=== PATIENT | male | born 1995 | race Caucasian/White ===

== ENCOUNTER 2024-10-02 07:09 | Inpatient (IN) | payer MEDICAID, SELFPAY ==
[2024-10-02] VITALS (10 sets, daily range): BP systolic 116–137; BP diastolic 75–91; PULSE 88–151; RESP 14–19; TEMP 36.6–37.2; O2SAT 96–100; BMI 21.7
--- NOTE | 2024-10-02 07:32 | ECG_ITS ---
Test Reason : chest pain Blood Pressure : / mmHG Vent. Rate : 122 BPM Atrial Rate : 122 BPM P-R Int : 142 ms QRS Dur : 094 ms QT Int : 324 ms P-R-T Axes : 050 066 041 degrees QTc Int : 461 ms Sinus tachycardia Otherwise normal ECG No previous ECGs available Referred By: Generic ED Physician Electronically Signed By:TRISTIN MAX MD
--- NOTE | 2024-10-02 07:36 | ED_ITS ---
HPI - General Adult General Chief complaint: ETOH/Substance Use Stated complaint: Alcohol Withdrawals Time Seen by Provider: 10/02/24 07:36 Source: patient and other (patient's fianc?) Mode of arrival: ambulatory Limitations: no limitations History of Present Illness ED Provider: Tami Horton PA-C HPI narrative: 29-year-old male presents with a PMH significant for anxiety, depression, insomnia, alcohol withdrawal with history of delirium tremens in 2021 presents to the ED today for alcohol withdrawal. He has been to detox before after being treated for alcohol withdrawal. Patient reportedly has been on a 1-week ramirez and has drank approximately 10 sleeves of nips this week. Every day this week he has consumed 15 nips of vodka per day. Patient states that he continues to consume nips to prevent feeling the effects of alcohol withdrawal. Yesterday he consumed 10 nips in an attempt to cut back on the amount he was drinking. His last drink was around 0200, but it was difficult for him to recall. Patient experienced N/V this morning and was extremely diaphoretic. Patient endorses tremors at rest, intermittent numbness and tingling in his fingers and toes, and severe anxiety. Denies visual or auditory hallucinations at this time, MADDEN, agitation or altered orientation. Endorses marijuana and cigarette use. Patient reports feeling a lot of shame about his current situation. Relieving factors: none Exacerbating factors: none Related Data Home Medications ?Medication ?Instructions ?Recorded ?Confirmed ibuprofen 200 mg tablet 200 mg PO DAILY PRN Pain 10/02/24 10/02/24 melatonin 5 mg tablet 5 mg PO BEDTIME PRN Sleep 10/02/24 10/02/24 Allergies Allergy/AdvReac Type Severity Reaction Status Date / Time No Known Allergies Allergy Verified 10/02/24 07:29 Review of Systems 2 Constitutional: Constitutional: Denies chills, Reports excessive sweating, Denies fever(s) and Denies night sweats Eyes: Eyes: Reports no additional eye complaints, Denies blurry vision, Denies change in vision, Denies diplopia, Denies eye discharge, Denies loss of vision and Denies eye pain ENT: Denies dizziness Cardiovascular: Cardiovascular: Reports no additional cardiovascular complaints, Denies chest pain, Denies lightheadedness, Denies Loss of Consciousness and Denies dyspnea Respiratory: Respiratory: Reports no additional respiratory complaints and Denies dyspnea Gastrointestinal: Gastrointestinal: Reports no additional gastrointestinal complaints, Denies abdominal pain, Denies melena, Denies hematochezia, Denies change in bowel habits, Denies change in stool character, Reports nausea and Reports vomiting Genitourinary: Genitourinary: Reports no additional male genitourinary complaints, Denies hematuria, Denies oliguria, Denies difficulty urinating, Denies dysuria, Denies urinary frequency, Denies urinary hesitancy, Denies urinary incontinence and Denies urinary urgency Musculoskeletal: Musculoskeletal: Reports no additional musculoskeletal complaints, Reports numbness and Reports tingling Neurologic: Denies dizziness, Denies loss of vision, Reports numbness, Denies Other visual disturbances, Reports tingling and Reports tremor(s) Psychiatric: Psychiatric: Reports no additional psychiatric complaints and Reports anxiety Endocrine: Endocrine: Reports no additional endocrine complaints and Reports excessive sweating Hematologic/Lymphatic: Hematologic/Lymphatic: Reports no additional hematologic/lymphatic complaints Allergic/Immunologic: Allergic/Immunologic: Reports no additional allergic/immunologic complaints PMFSH Past Medical History Attestation statement: The following information was validated with the patient. (all information validated with the patient's fianc?) Source: old records reviewed, obtained from family (patient's fianc? provided additional history and confirmed the history provided by the patient) and nursing notes reviewed Medical History Insomnia Depression Anxiety ETOH abuse Social History Social History Alcohol intake: current Patient Tobacco Use Status: Current everyday Tobacco user Smoked in Last 30 Days: No Use of substances other than those prescribed or required for medical reasons: No Advance Directives: No Advance Directives Information Provided: Yes Do you have a plan to hurt others: No Plan Nutrition Risks: No Nutritional Risk Physical Exam ED Vital Signs: Vital Signs - 24 hr 10/02/24 07:25 10/02/24 07:50 10/02/24 10:18 Temperature 97.9 F Pulse Rate 151 H 118 H 135 H Respiratory Rate 18 18 14 Blood Pressure 131/80 127/91 H 122/76 Pulse Oximetry 100 99 98 Oxygen Delivery Method Room Air Room Air Room Air 10/02/24 10:43 Temperature Pulse Rate 111 H Respiratory Rate 16 Blood Pressure 116/78 Pulse Oximetry 98 Oxygen Delivery Method Room Air BMI result Body Mass Index 21.7 Const General: cooperative, no acute distress, alert and awake; No diaphoretic Nutritional Appearance: well nourished Orientation/consciousness: patient oriented x3 Limitations: no limitations HENMT Head: Yes normal to inspection and Yes atraumatic Ears: hearing grossly normal bilaterally and external ears normal General nose exam: Normal external nose present, no nasal discharge noted and no epistaxis Face and sinus: Yes normal facial exam, No abrasion and No laceration Mouth: Normal oral and palatal mucosa present, no drooling and no muffled voice Eyes General: appearance normal, both eyes and all related structures Periorbital: periorbital findings normal Eyelids: Yes eyelids normal Conjunctivae: conjunctivae normal Pupils: Equal, round and reactive pupils present EOM: EOMs intact bilaterally Neck Neck: Yes normal visual inspection, Yes full ROM and Yes no lymphadenopathy Chest Chest palpation & inspection: normal inspection of the chest Resp Effort & Inspection: normal respiratory effort and able to speak in complete sentences GI Inspection: Yes normal to inspection Palpation (GI): Soft to palpation, not firm, nontender and no guarding Neuro General: patient oriented x3 and moves all extremities Cranial nerves: Yes Equal, round and reactive pupils present Cognition (Neuro): normal cognition Motor exam (neuro): Tremors during motor activity present (all extremities) Extrem General: Yes normal to inspection, Yes full ROM and Yes capillary refill normal Psych Appearance: grossly normal Mental Status: mental status grossly normal Affect: normal affect Attitude: cooperative Thought process: Normal thought process present Thought content: Normal thought content present Insight: Good insight present (Psych) Medications Administered Generic Name Dose Route Start Last Admin Trade Name Freq PRN Reason Stop Dose Admin Enoxaparin Sodium 40 mg 10/02/24 11:15 10/02/24 11:34 Enoxaparin Sodium 40 Mg/0.4 Ml Syringe SUBCUT 40 mg Q24H KAY Administration Famotidine 20 mg 10/02/24 11:30 10/02/24 11:35 Famotidine/Pf 20 Mg/2 Ml Vial IVPUSH 20 mg BID KAY Administration Folic Acid 1 mg 10/02/24 11:30 10/02/24 11:36 Folic Acid 1 Mg Tablet PO 10/05/24 11:29 1 mg DAILY KAY Administration Multivitamins/Vitamin C 1 tab 10/02/24 11:30 10/02/24 11:36 Multivitamin Tablet PO 10/05/24 11:29 1 tab DAILY KAY Administration Thiamine HCl 100 mg 10/02/24 11:30 10/02/24 11:36 Thiamine Hcl 100 Mg Tablet PO 10/05/24 11:29 100 mg DAILY KAY Administration Discontinued Medications Generic Name Dose Route Start Last Admin Trade Name Jennifer PRN Reason Stop Dose Admin Sodium Chloride 1,000 mls @ 999 mls/hr 10/02/24 10:00 10/02/24 11:41 Ns IV 10/02/24 11:00 Infused .Q1H1M KYA Infusion Lorazepam 2 mg 10/02/24 07:37 10/02/24 07:48 Lorazepam 2 Mg/Ml Vial IVPUSH 10/02/24 07:38 2 mg ONCE ONE Administration Nicotine 21 mg 10/02/24 10:04 10/02/24 10:37 Nicotine 21 Mg Patch.Td24 TRANSDERMA 10/02/24 10:05 21 mg ONCE ONE Administration Ondansetron HCl 4 mg 10/02/24 07:37 10/02/24 07:48 Ondansetron Hcl 4 Mg/2 Ml Vial IVPUSH 10/02/24 07:38 4 mg ONCE ONE Administration Phenobarbital Sodium 290 mg 10/02/24 10:00 10/02/24 10:37 Phenobarbital Sodium 130 Mg/Ml Im Once IM 10/02/24 10:01 290 mg ONCE ONE Administration Protocol Potassium Chloride 20 meq 10/02/24 11:08 10/02/24 11:36 Potassium Chloride Er 20 Meq Tab.Er.Prt PO 10/02/24 11:09 20 meq ONCE ONE Administration Medical Decision Making Medical Decision Making [facility] Narrative: Patient is a 29 year old assigned male at with a history of insomnia, depression, anxiety, and alcohol abuse presenting to the emergency department today with alcohol withdrawal. Patient's physical exam was as noted in the physical exam portion of this note. Patient's blood work showed an elevated WBC count of 19, potassium of 3.1, and slightly elevated LFTs. This is all consistent with alcohol withdrawal. Patient's urine showed no acute process. Patient's EKG was unremarkable. I spoke to the hospitalist team who agreed to admission for alcohol withdrawal. I explained my physical exam findings as well as all test results to the patient and the patient's fiance. I answered all questions asked by the patient and the patient's fiance. Patient received IV fluids, Zofran, ativan, and PO/IM Phenobarb which, upon re-evaluation, he stated it helped his symptoms significantly. I stressed the importance of the patient taking his medication as directed (either prescribed or as the over the counter packaging recommends). Patient and the patient's fiance verbalized agreement and understanding with this treatment plan and admission. Differential Diagnosis Differential Diagnoses: The differential diagnosis associated with the presentation includes Alcohol withdrawal Admission/Observation Consideration of admission/observation: Escalation of care including admission/observation considered Patient admitted. Lab Data [facility] Lab Attestation statement: I reviewed the patient's lab results. My interpretation of these results are in the [facility] Rationale portion of this note. 10/02/24 07:47 10/02/24 08:09 Labs: Lab Results 10/02/24 10/02/24 10/02/24 Range/Units 07:47 08:09 10:15 WBC 19.0 H (4.8-10.8) X10*3/uL RBC 5.67 (4.60-5.80) X10*6/uL Hgb 17.9 (14.0-18.0) g/dl Hct 48.2 (42.0-52.0) % MCV 85.0 (80.0-98.0) fL MCH 31.6 (27.0-33.0) pg MCHC 37.1 H (31.0-36.0) g/dl RDW 13.0 (11.0-16.0) % Plt Count 296 (160-400) X10*3/uL MPV 8.8 L (9.4-12.4) fL Immature Gran % (Auto) 0.4 (0.0-0.4) % Neut % (Auto) 81.1 H (45-73) % Lymph % (Auto) 12.6 L (20-40) % [place] % (Auto) 5.5 (2-11) % Eos % (Auto) 0.1 (0-4) % Baso % (Auto) 0.3 (0-2) % Lymph # (Auto) 2.4 (1.2-4.9) X10*3/uL [place] # (Auto) 1.0 (0.1-1.2) X10*3/uL Eos # (Auto) 0.0 (0.0-0.4) X10*3/uL Baso # (Auto) 0.1 (0.0-0.2) X10*3/uL Abs Immat Gran (auto) 0.08 H (0.00-0.03) X10*3/uL Absolute Neuts (auto) 15.4 H (2.0-8.3) x10*3/uL Absolute Nucleated RBC 0.000 (0.0-0.012) X10*3/uL Nucleated RBC % (auto) 0.0 (0.0-0.2) /100WBC Sodium 142 (135-145) mmol/L Potassium 3.1 L (3.3-5.1) mmol/L Chloride 100 (96-108) mmol/L Carbon Dioxide 22 (22-29) mmol/L Anion Gap 23 H (12-20) BUN 10 (9-16) mg/dL Creatinine 0.77 (0.5-1.4) mg/dL Estim Creat Clear Calc 145.3 Estimated GFR > 60 Random Glucose 115 (60-115) mg/dL Calcium 9.8 (8.4-10.2) mg/dL Magnesium 1.9 (1.6-2.6) mg/dL Total Bilirubin 1.2 H (0.0-1.0) mg/dL Direct Bilirubin 0.4 (0.0-0.5) mg/dL AST 104 H (5-37) U/L ALT 70 H (0-40) U/L Alkaline Phosphatase 69 (39-117) U/L Total Protein 7.9 (6.5-8.0) g/dL Albumin 4.9 (3.5-5.0) g/dL Lipase 41 (8-78) U/L Urine Color Dark Yellow Urine Appearance Hazy Urine pH 8.0 (5.0-9.0) Ur Specific [place] >= 1.030 H (1.005-1.025) Urine Protein 300 (3+) H (Neg-Trace) mg/dL Urine Glucose (UA) Negative (Negative) mg/dL Urine Ketones 40 (Negative) mg/dL Urine Blood Negative (Negative) Urine Nitrite Positive H (Negative) Ur Leukocyte Esterase Small (1+) H (Negative) Urine RBC 0-2 (0-2) /HPF Urine WBC 0-5 (0-5) /HPF Ur Squamous Epith Cells 0-2 (0-2) /HPF Urine Bacteria Trace (None Seen) Hyaline Casts 3-5 (0-2) /LPF Urine Opiates Screen Not Detected (Not Detect) Ur Buprenorphine Scrn Not Detected (Not Detect) ng/mL Ur Oxycodone Screen Not Detected (Not Detect) ng/mL Urine Methadone Screen Not Detected (Not Detect) ng/mL Urine Fentanyl Screen Not Detected (Not Detect) Ur Barbiturates Screen Not Detected (Not Detect) Ur Phencyclidine Scrn Not Detected (Not Detect) Ur Amphetamines Screen Not Detected (Not Detect) U Benzodiazepines Scrn Not Detected (Not Detect) Urine Cocaine Screen Not Detected (Not Detect) U Marijuana (THC) Screen POSITIVE H (Not Detect) Ethyl Alcohol 167 mg/dL Independent Interpretation I performed an independent interpretation of an: EKG Interpretation: Vent. Rate: 122 BPM Atrial Rate: 122 BPM P-R Int: 142 ms QRS Dur: 094 ms QT Int: 324 ms P-R-T Axes: 050 066 041 degrees QTc Int: 461 ms Sinus tachycardia Otherwise normal ECG No previous ECGs available Referred By: Generic ED Physician Electronically Signed By:WARD MAX MD Dictated By: Ward Max MD Signed By: Electronically signed by Ward Max MD 10/02/24 0825 Independent Historian Clinical information obtained from an independent historian. History obtained from or confirmed by: Other (patient's fianc? provided additional history and confirmed the history provided by the patient) Critical Care Time Critical Care Time Critical Care Time: Yes Total Critical Care Time: 44 Attestation: I spent 44 minutes of Critical Care Time with this patient. This does not include time spent on separately reported billable procedures. Discharge Plan Discharge Clinical Impression: ETOH abuse, Alcohol withdrawal Patient Disposition: Admitted As Inpatient
[2024-10-02] MEDS: LORazepam 2 MG/ML VIAL IVPUSH (07:48)
[2024-10-02] MEDS: ondansetron HCL 4 MG/2 ML VIAL IVPUSH ×3 (07:48→20:33)
[2024-10-02 07:55] LABS: Basophils Absolute Auto 0.1 X10*3/uL (0.0-0.2); Basophils Percent Auto 0.3 % (0-2); Eosinophils Percent Auto 0.1 % (0-4); Hematocrit 48.2 % (42.0-52.0); Hemoglobin 17.9 g/dl (14.0-18.0); Imm Gran Abs Auto 0.08 X10*3/uL (0.00-0.03); Imm Gran Pct Auto 0.4 % (0.0-0.4); Lymphocytes Absolute Auto 2.4 X10*3/uL (1.2-4.9); Lymphocytes Percent Auto 12.6 % (20-40); MANUAL DIFF FLAG NO; Mean Corpuscular HGB Conc 37.1 g/dl (31.0-36.0); Mean Corpuscular Hemoglobin 31.6 pg (27.0-33.0); Mean Platelet Volume 8.8 fL (9.4-12.4); Monocytes Percent Auto 5.5 % (2-11); Neutrophils Absolute Auto 15.4 x10*3/uL (2.0-8.3); Neutrophils Percent Auto 81.1 % (45-73); Platelet Count 296 X10*3/uL (160-400); Red Blood Count 5.67 X10*6/uL (4.60-5.80)
[2024-10-02 08:33] LABS: Alanine Aminotransferase 70 U/L (0-40); Albumin Level 4.9 g/dL (3.5-5.0); Alkaline Phosphatase 69 U/L (39-117); Anion Gap 23 (12-20); Aspartate Amino Transferase 104 U/L (5-37); Bilirubin Direct 0.4 mg/dL (0.0-0.5); Bilirubin Total 1.2 mg/dL (0.0-1.0); Blood Urea Nitrogen 10 mg/dL (9-16); Calcium 9.8 mg/dL (8.4-10.2); Carbon Dioxide 22 mmol/L (22-29); Chloride 100 mmol/L (96-108); Creatinine Clr Calc Pharmacy 145.3; Estimated Glomerular Filt Rate > 60; Ethanol 167 mg/dL; Glucose Random 115 mg/dL (60-115); Magnesium 1.9 mg/dL (1.6-2.6); Potassium 3.1 mmol/L (3.3-5.1); Sodium 142 mmol/L (135-145); Total Protein 7.9 g/dL (6.5-8.0)
[2024-10-02 10:31] LABS: Appearance Urine Hazy; Color Urine Dark Yellow; Glucose Urine UA Negative (Negative); Leukocyte Esterase Urine Small (1+) (Negative); Nitrite Urine Positive (Negative); Specific Gravity - Urine >= 1.030 (1.005-1.025); UMIC TRIGGER UACC YES; Urine Blood Negative (Negative); Urine Ketones 40 mg/dL (Negative); Urine Protein 300 (3+) mg/dL (Neg-Trace)
[2024-10-02] MEDS: 0.9 % Sodium Chloride 1,000 ML 999 ML IV (10:37)
[2024-10-02] MEDS: PHENobarbitaL sodium 130 MG/ML IM ONCE 290 MG IM (10:37)
[2024-10-02] MEDS: Nicotine 21 MG PATCH.TD24 TRANSDERMA (10:37)
--- NOTE | 2024-10-02 10:38 | PHA.MEDREC ---
Addendum entered by Mindy Huber RPh 10/02/24 11:21: Reviewed by [facility] Original Note: Pharmacy Consult ? Medication Reconciliation Pharmacy has completed the medication reconciliation. Patient and family at bedside confirmed patient is not taking any prescription medications but takes Melatonin 5mg tabs 1 at bedtime as needed and Ibuprofen 200mg tabs 1 tab daily as needed for pain. The patient states he took them both last night.
[2024-10-02 10:42] LABS: Lipase 41 U/L (8-78)
[2024-10-02 10:45] LABS: Amphetamine Screen Urine Not Detected (Not Detect); Barbiturates, Urine Not Detected (Not Detect); Benzodiazepines Screen Urine Not Detected (Not Detect); Buprenorphine Scr Not Detected (Not Detect); Cannabinoid Screen Urine POSITIVE (Not Detect); Cocaine Screen Urine Not Detected (Not Detect); Fentanyl, urine Not Detected (Not Detect); Methadone Screen, Urine Not Detected (Not Detect); Opiate Screen Urine Not Detected (Not Detect); Oxycodone Screen Urine Not Detected (Not Detect); Phencyclidine Screen Urine Not Detected (Not Detect)
[2024-10-02 10:46] LABS: Bacteria Urine Trace (None Seen); RBC Urine 0-2 /HPF (0-2); Squamous Epithelial Cell Urine 0-2 /HPF (0-2); UACC Culture Trigger YES; WBC Urine 0-5 /HPF (0-5)
--- NOTE | 2024-10-02 10:46 | P.HPHOSP_ITS ---
History of Present Illness Date of Service: 10/02/24 Attending physician on admission: Cody Langston Chief Complaint: etoh withdrawal, N/V Patient is a 29-year-old male with a past medical history significant for anxiety, depression, insomnia and alcohol abuse (history of DTs) who presented to the ED, and alcohol withdrawal with severe nausea and vomiting. His last drink was at 02:00 today. He reports a heavy history of alcohol use since 13 years old, intermittent sobriety, started drinking again 1-2 ago, usually 15 nips of vodka a day. He has been vomiting recently a few times a day however were significantly last night bringing him to the ED. he denies any hematemesis and reported only liquids or bile. Last night he was unable to tolerate any liquids without vomiting. He reports severe pain with swallowing since the severe vomiting episodes. He does have a history of delirium tremens back in 2021 with withdrawal. He complains of a headache, mild nausea now (more severe earlier), chest tightness and severe anxiety. He denies any vomiting here, agitation, visual or auditory hallucinations. Review of Systems 2 Constitutional: Constitutional: Denies chills, Denies excessive sweating, Denies fever(s) and Reports headache(s) Eyes: Eyes: Denies change in vision ENT: Reports headache(s), Reports nasal congestion, Reports nasal discharge, Reports odynophagia and Reports sore throat Cardiovascular: Cardiovascular: Reports chest pain, Reports rapid heart rate, Denies leg edema, Denies lightheadedness and Denies dyspnea Respiratory: Respiratory: Reports chest congestion, Reports cough, Denies hemoptysis, Denies dyspnea and Denies wheezing Gastrointestinal: Gastrointestinal: Denies coffee ground emesis, Denies diarrhea, Reports nausea, Reports odynophagia, Reports vomiting and Denies hematemesis Genitourinary: Genitourinary: Denies dysuria Musculoskeletal: Musculoskeletal: Denies numbness and Denies tingling Integumentary/Breasts: Skin/Breast: Denies rash Neurologic: Reports headache(s), Reports memory loss (due to blacking out when drinking), Denies numbness and Denies tingling Psychiatric: Psychiatric: Reports anxiety and Reports memory loss (due to blacking out when drinking) Endocrine: Endocrine: Denies excessive sweating Allergic/Immunologic: Allergic/Immunologic: Denies wheezing PMFSH Medical History Insomnia Depression Anxiety ETOH abuse Functional capacity: independent ambulation Social History Alcohol intake: current Narrative: lives with fiancee. hx of etoh abuse since 13 years old, intermittent sobriety. currently drinking 15 nips of vodka/day for the past few weeks. smokes 1/2pk of cigarettes/day. smokes marijuanna daily. Meds Allergies Allergy/AdvReac Type Severity Reaction Status Date / Time No Known Allergies Allergy Verified 10/02/24 07:29 Active Medications: Current Medications Sodium Chloride (Ns) 1,000 mls @ 999 mls/hr IV .Q1H1M KAY Stop: 10/02/24 11:00 Last Admin: 10/02/24 10:37 Dose: 999 mls/hr Nicotine Polacrilex (Nicotine Polacrilex 2 Mg Gum) 2 mg BUCCAL Q1H PRN PRN Reason: Nicotine Cravings Pharmacy Consult (Consult Rx Etoh Phenob Im/Po) 1 each MISCELLANE ONCE PRN; Protocol PRN Reason: Consult order Phenobarbital (Phenobarbital 30 Mg Tablet) 60 mg PO BID [facility]; Protocol Stop: 10/04/24 09:01 Phenobarbital (Phenobarbital 30 Mg Tablet) 30 mg PO BID KAY; Protocol Stop: 10/07/24 09:01 Phenobarbital (Phenobarbital 30 Mg Tablet) 30 mg PO DAILY [facility]; Protocol Stop: 10/09/24 09:01 Phenobarbital Sodium (Phenobarbital Sodium 130 Mg/Ml Vial Im Q3hx2) 217 mg IM Q3H KAY; Protocol Stop: 10/02/24 16:01 Home Medications ?Medication ?Instructions ?Recorded ?Confirmed ?Last Taken ?Type ibuprofen 200 mg tablet 200 mg PO DAILY PRN Pain 10/02/24 10/02/24 10/01/24 History melatonin 5 mg tablet 5 mg PO BEDTIME PRN Sleep 10/02/24 10/02/24 10/01/24 History Physical Exam 2 Vital Signs and Narrative: Vital Signs: Last Vital Signs Temp 97.9 F 10/02/24 07:25 Pulse 111 H 10/02/24 10:43 Resp 16 10/02/24 10:43 BP 116/78 10/02/24 10:43 Pulse Ox 98 10/02/24 10:43 O2 Del Method Room Air 10/02/24 10:43 BMI result Body Mass Index 21.7 General: AOx3, no acute distress, fiancee bedside Resp: CTA bilaterally, cough with upper airway congestion CVS: S1, S2, tachycardic GI: +BS, NT, no distention Skin: Warm, mild diaphoresis on back Neuro: Cranial nerves II-XII grossly intact bilaterally. Motor grossly intact bilaterally Extremities: No edema Psych: Appropriate affect Results Labs 10/02/24 07:47 10/02/24 08:09 Labs: Laboratory Results - last 24 hr 10/02/24 10/02/24 10/02/24 07:47 08:09 10:15 MCV 85.0 MCH 31.6 MCHC 37.1 H RDW 13.0 Plt Count 296 MPV 8.8 L Immature Gran % (Auto) 0.4 Neut % (Auto) 81.1 H Lymph % (Auto) 12.6 L [place] % (Auto) 5.5 Eos % (Auto) 0.1 Baso % (Auto) 0.3 Lymph # (Auto) 2.4 [place] # (Auto) 1.0 Eos # (Auto) 0.0 Baso # (Auto) 0.1 Abs Immat Gran (auto) 0.08 H Absolute Neuts (auto) 15.4 H Absolute Nucleated RBC 0.000 Nucleated RBC % (auto) 0.0 Anion Gap 23 H Estim Creat Clear Calc 145.3 Estimated GFR > 60 Random Glucose 115 Calcium 9.8 Magnesium 1.9 Total Bilirubin 1.2 H Direct Bilirubin 0.4 AST 104 H ALT 70 H Alkaline Phosphatase 69 Total Protein 7.9 Albumin 4.9 Lipase 41 Urine Color Dark Yellow Urine Appearance Hazy Urine pH 8.0 Ur Specific [place] >= 1.030 H Urine Protein 300 (3+) H Urine Glucose (UA) Negative Urine Ketones 40 Urine Blood Negative Urine Nitrite Positive H Ur Leukocyte Esterase Small (1+) H Urine Opiates Screen Not Detected Ur Buprenorphine Scrn Not Detected Ur Oxycodone Screen Not Detected Urine Methadone Screen Not Detected Urine Fentanyl Screen Not Detected Ur Barbiturates Screen Not Detected Ur Phencyclidine Scrn Not Detected Ur Amphetamines Screen Not Detected U Benzodiazepines Scrn Not Detected Urine Cocaine Screen Not Detected U Marijuana (THC) Screen POSITIVE H Ethyl Alcohol 167 Assessment and Plan (1) Alcohol withdrawal: Status: Acute (2) Esophagitis with gastritis: Status: Acute Plan Patient is a 29-year-old male with a past medical history significant for anxiety, depression, insomnia and alcohol abuse (history of DTs) who presented to the ED, and alcohol withdrawal with severe nausea and vomiting. He reports drinking 12 nips of vodka per day, last drink was at 02:00 today. Has moderate tremors on exam, severe anxiety, , headache, mild nausea, no agitation, no visual or auditory hallucinations. CIWA currently 13. Tachycardia and elevated white count secondary to alcohol withdrawal, not sepsis. Alcohol withdrawal - CIWA scale - phenobarb protocol - discussed importance of alcohol cessation - seizure precautions, history of DTs - folic acid 1 mg daily, multivitamin daily, thiamine 100 mg daily - K low 3.1, given small dose 20 meq - IV famotidine for esophagitis - admit to telemetry - addiction med consult - monitor BMP Full code VTE prophylaxis: Lovenox Patient with alcohol withdrawal and esophagitis with gastritis secondary to severe nausea and vomiting, requiring admission for safe medical withdrawal and monitoring for at least 2 midnights stay. Quality Stroke Does the patient have a stroke diagnosis?: No VTE Prior VTE?: No VTE Risk Level:: Medical - moderate - high VTE Device Contraindication: Treatment Not Indicated VTE Drug Contraindication: N/A - Med Ordered
[2024-10-02] MEDS: Enoxaparin Sodium 40 MG/0.4 ML SYRINGE SUBCUT (11:34)
[2024-10-02] MEDS: Famotidine/PF 20 MG/2 ML VIAL IVPUSH ×2 (11:35→20:05)
[2024-10-02] MEDS: Potassium Chloride ER 20 MEQ TAB.ER.PRT PO (11:36)
[2024-10-02] MEDS: Thiamine HCL 100 MG TABLET PO (11:36)
[2024-10-02] MEDS: Folic Acid 1 MG TABLET PO (11:36)
[2024-10-02] MEDS: Multivitamin TABLET 1 TAB PO (11:36)
--- NOTE | 2024-10-02 12:05 | PC.NURSE ---
Pt tachycardic on cardiac exercise physiologist, HR- 140s. PA made aware of tachycardia. Pt asymptomatic, denies chest pain/sob.
--- NOTE | 2024-10-02 12:31 | MHC.RECOVRN ---
Met with pt in ED12, along with ED provider, after pt expressed interest in ATS. Pts partner, Ernesto, present with pts permission. Pt with elevated CIWA scores and hx of DTs. Pt agreeable to hospital admission. Pt reports alcohol use, 10-20 nips daily x 1.5-2 weeks. Prior to that, pt reports last ramirez was earlier this year. Pt reports he will have a period of abstinence and due to mental health will begin daily alcohol use. Pt is interested in support. Educated pt regarding CARE Team and option of CARE Team consult. Educated pt regarding IOP as well. Informed pt t/w would follow during admission and continue to check in. Pt denies questions or concerns at this time. Discussed with Nat Yang APRN.
--- NOTE | 2024-10-02 12:35 | PC.NURSE ---
Pt up in bed, multiple episodes of dry heaving/vomiting. Medicated per MAR with PRN zofran. Pt remains tachycardic on surveillance monitor, tremulous, and anxious.
[2024-10-02] MEDS: PHENobarbitaL sodium 130 MG/ML VIAL IM Q3Hx2 217 MG IM ×2 (13:20→17:27)
[2024-10-02] MEDS: Nicotine Polacrilex 2 MG GUM BUCCAL (15:59)
[2024-10-02] MEDS: 0.9 % Sodium Chloride Flush 3 ML SYRINGE IVFLUSH ×2 (17:30→20:10)
[2024-10-02] MEDS: Calcium Carbonate 750 MG TAB.CHEW PO (20:05)
[2024-10-02] MEDS: PHENobarbitaL 30 MG TABLET 60 MG PO (20:05)
[2024-10-02] MEDS: traZODone HCL 50 MG TABLET PO (20:27)
[2024-10-03 03:53] VITALS: BP 132/72; PULSE 83; RESP 19; O2SAT 97
[2024-10-03 06:36] LABS: MANUAL DIFF FLAG NO
[2024-10-03 06:43] LABS: Basophils Absolute Auto 0.1 X10*3/uL (0.0-0.2); Basophils Percent Auto 0.6 % (0-2); Eosinophils Absolute Auto 0.1 X10*3/uL (0.0-0.4); Eosinophils Percent Auto 1.2 % (0-4); Hematocrit 42.6 % (42.0-52.0); Hemoglobin 15.2 g/dl (14.0-18.0); Imm Gran Abs Auto 0.02 X10*3/uL (0.00-0.03); Imm Gran Pct Auto 0.2 % (0.0-0.4); Lymphocytes Absolute Auto 2.4 X10*3/uL (1.2-4.9); Lymphocytes Percent Auto 25.7 % (20-40); Mean Corpuscular HGB Conc 35.7 g/dl (31.0-36.0); Mean Corpuscular Hemoglobin 31.6 pg (27.0-33.0); Mean Corpuscular Volume 88.6 fL (80.0-98.0); Monocytes Percent Auto 10.3 % (2-11); Neutrophils Absolute Auto 5.8 x10*3/uL (2.0-8.3); Platelet Count 208 X10*3/uL (160-400); Red Blood Count 4.81 X10*6/uL (4.60-5.80); White Blood Count 9.3 X10*3/uL (4.8-10.8)
[2024-10-03 06:53] LABS: Anion Gap 15 (12-20); Blood Urea Nitrogen 11 mg/dL (9-16); Calcium 9.8 mg/dL (8.4-10.2); Carbon Dioxide 27 mmol/L (22-29); Chloride 101 mmol/L (96-108); Creatinine Clr Calc Pharmacy 159.6; Estimated Glomerular Filt Rate > 60; Glucose Random 99 mg/dL (60-115); Potassium 3.9 mmol/L (3.3-5.1); Sodium 139 mmol/L (135-145)
[2024-10-03 07:27] LABS: Folate 5.1 ng/mL (> or = 4.0); Vitamin B12 395 pg/mL (200-900)
[2024-10-03 07:38] VITALS: BP 125/91; PULSE 75; RESP 18; TEMP 37.2; O2SAT 98
[2024-10-03] MEDS: Thiamine HCL 100 MG TABLET PO (09:25)
[2024-10-03] MEDS: 0.9 % Sodium Chloride Flush 3 ML SYRINGE IVFLUSH ×2 (09:25→15:59)
[2024-10-03] MEDS: Nicotine Polacrilex 2 MG GUM BUCCAL (09:25)
[2024-10-03] MEDS: Folic Acid 1 MG TABLET PO (09:25)
[2024-10-03] MEDS: PHENobarbitaL 30 MG TABLET 60 MG PO (09:25)
[2024-10-03] MEDS: Multivitamin TABLET 1 TAB PO (09:25)
[2024-10-03] MEDS: Famotidine/PF 20 MG/2 ML VIAL IVPUSH (09:25)
--- NOTE | 2024-10-03 09:29 | MHC.CM.PN ---
Addendum entered by Nury Chong, RN 10/03/24 15:24: PER [facility] THEY DO NOT CURRENTLY TAKE PT'S MEDICAID PLAN, CM TO UPDATE PT. Original Note: EMR REVIEWED, PT ADMITTED W/ETOH WITHDRAWAL/GASTRITIS, CM MET W/PT AND Ulices MORENO AT BEDSIDE, PT REPORTS HE LIVES W/MOM IN [place] HOWEVER SPENDS MOST OF HIS TIME IN [place] W/TIFFANIE. PT IS FULLY INDEP W/ALL CARE, DENIES USE OF DME/SERVICES,PT'S GOAL IS HOME SOON POSSIBLE D/T WANTING TO SMOKE. PT HAS NO PCP AND REPORTS HE HAS BEEN TRYING TO GET ONE HOWEVER THE WAIT HAS BEEN 9-12 MONTH WAIT, CM WILL CHECK IF [facility] TAKES PT'S MH PLAN, PT EDUCATED ON AND COMPLETE A HCP NAMING HIS Ulices BREWER [phone] HIS [facility] AND HIS MOTHER LYUBOV JAMISON [phone] HIS ALTERNATE, [facility] AND PLACED IN CHART.
[2024-10-03] MEDS: Nicotine 21 MG PATCH.TD24 TRANSDERMA (10:58)
[2024-10-03] MEDS: Enoxaparin Sodium 40 MG/0.4 ML SYRINGE SUBCUT (10:58)
[2024-10-03 11:04] VITALS: BP 123/89; PULSE 75; RESP 20; TEMP 36.5; O2SAT 97
--- NOTE | 2024-10-03 11:52 | MHC.RECOVRN ---
AUDIT-C Brief Intervention Pt had positive screen for unhealthy alcohol use on admission, subsequently met with t/w to discuss alcohol use and recovery supports/options. This video game script writer met with patient to discuss current alcohol use and concerns related to increased risk of alcohol related problems.? Pt reports 10-20 nips daily x 1.5-2 weeks. Discussed how alcohol use has impacted health, including negative impact on mental health and overall physical wellbeing. Withdrawal History: denies hx seizures, reports hx delirium tremens Treatment History: 1 ATS admission 8 months ago (stayed one day) Supports:?partner Shikha Discussed risk reduction strategies including drinking below the recommended limit. Provided pt with written resources including information on inpatient and outpatient treatment, BRUNA, harm reduction, and recovery coaching. Pt plans to initiate naltrexone and follow up with the [facility]. Pt provided with t/w contact information if questions or concerns arise. Denies other questions or concerns at this time.?
--- NOTE | 2024-10-03 12:08 | HO.PM.IMPN ---
Subjective Subjective Date of Service: 10/03/24 Interval History: less tremulous depressed + anxious Review of Systems Review of Systems: Yes all other systems are reviewed and are negative Physical Exam Vital Signs: Vital Signs: Last Vital Signs Temp 97.7 F 10/03/24 11:04 Pulse 75 10/03/24 11:04 Resp 20 10/03/24 11:04 BP 123/89 10/03/24 11:04 Pulse Ox 97 10/03/24 11:04 O2 Del Method Room Air 10/03/24 11:04 BMI result Body Mass Index 21.7 Gen: in no acute distress HEENT: sclera anicteric, moist mucus membranes Neck: supple Lungs: clear to auscultation bilaterally Heart: regular rate and rhythm, no murmurs Abd: soft, non-tender, non-distended Ext: no edema Skin: warm/well-perfused Neuro: alert and oriented x3, no focal findings Psych: appropriate affect Objective Data Active Medications Acetaminophen (Acetaminophen 325 Mg Tablet) 650 mg PO Q6H PRN PRN Reason: Pain, Mild (Pain Scale 1-3), fever or headache Al Hydroxide/Mg Hydroxide (Magnesium Hydrox/Alum Hydrox 30 Ml Oral.Susp) 30 ml PO Q4H PRN PRN Reason: Heartburn Calcium Carbonate (Calcium Carbonate 750 Mg Tab.Chew) 750 mg PO Q4H PRN PRN Reason: Heartburn Last Admin: 10/02/24 20:05 Dose: 750 mg Documented By: FLORENCE Enoxaparin Sodium (Enoxaparin Sodium 40 Mg/0.4 Ml Syringe) 40 mg SUBCUT Q24H [facility] Last Admin: 10/03/24 10:58 Dose: 40 mg Documented By: ERYN Famotidine (Famotidine/Pf 20 Mg/2 Ml Vial) 20 mg IVPUSH BID [facility] Last Admin: 10/03/24 09:25 Dose: 20 mg Documented By: ERYN Folic Acid (Folic Acid 1 Mg Tablet) 1 mg PO DAILY [facility] Stop: 10/05/24 11:29 Last Admin: 10/03/24 09:25 Dose: 1 mg Documented By: ERYN Magnesium Hydroxide (Milk Of Magnesia 30 Ml Oral.Susp) 30 ml PO DAILY PRN PRN Reason: Constipation Melatonin (Melatonin 3 Mg Tablet) 6 mg PO BEDTIME PRN PRN Reason: Insomnia Multivitamins/Vitamin C (Multivitamin Tablet) 1 tab PO DAILY [facility] Stop: 10/05/24 11:29 Last Admin: 10/03/24 09:25 Dose: 1 tab Documented By: ERYN Nicotine (Nicotine 21 Mg Patch.Td24) 21 mg TRANSDERMA DAILY [facility] Last Admin: 10/03/24 10:58 Dose: 21 mg Documented By: ERYN Nicotine Polacrilex (Nicotine Polacrilex 2 Mg Gum) 2 mg BUCCAL Q1H PRN PRN Reason: Nicotine Cravings Last Admin: 10/03/24 09:25 Dose: 2 mg Documented By: ERYN Ondansetron HCl (Ondansetron Hcl 4 Mg/2 Ml Vial) 4 mg IVPUSH Q8H PRN PRN Reason: Nausea and Vomiting Last Admin: 10/02/24 20:33 Dose: 4 mg Documented By: FLORENCE Pharmacy Consult (Consult Rx Etoh Phenob Im/Po) 1 each MISCELLANE ONCE PRN; Protocol PRN Reason: Consult order Phenobarbital (Phenobarbital 30 Mg Tablet) 60 mg PO BID [facility]; Protocol Stop: 10/04/24 09:01 Last Admin: 10/03/24 09:25 Dose: 60 mg Documented By: ERYN Phenobarbital (Phenobarbital 30 Mg Tablet) 30 mg PO BID [facility]; Protocol Stop: 10/07/24 09:01 Phenobarbital (Phenobarbital 30 Mg Tablet) 30 mg PO DAILY [facility]; Protocol Stop: 10/09/24 09:01 Sodium Chloride (0.9 % Sodium Chloride Flush 3 Ml Syringe) 3 ml IVFLUSH [facility] Last Admin: 10/03/24 09:25 Dose: 3 ml Documented By: ERYN Thiamine HCl (Thiamine Hcl 100 Mg Tablet) 100 mg PO DAILY [facility] Stop: 10/05/24 11:29 Last Admin: 10/03/24 09:25 Dose: 100 mg Documented By: ERYN Trazodone HCl (Trazodone Hcl 50 Mg Tablet) 50 mg PO BEDTIME PRN PRN Reason: Insomnia Last Admin: 10/02/24 20:27 Dose: 50 mg Documented By: FLORENCE Labs 10/03/24 06:30 10/03/24 06:30 Labs: Laboratory Results - last 24 hr 10/03/24 06:30 MCV 88.6 MCH 31.6 MCHC 35.7 RDW 13.0 Plt Count 208 D MPV 9.0 L Immature Gran % (Auto) 0.2 Neut % (Auto) 62.0 Lymph % (Auto) 25.7 [place] % (Auto) 10.3 Eos % (Auto) 1.2 Baso % (Auto) 0.6 Lymph # (Auto) 2.4 [place] # (Auto) 1.0 Eos # (Auto) 0.1 Baso # (Auto) 0.1 Abs Immat Gran (auto) 0.02 Absolute Neuts (auto) 5.8 Absolute Nucleated RBC 0.000 Nucleated RBC % (auto) 0.0 Anion Gap 15 Estim Creat Clear Calc 159.6 Estimated GFR > 60 Random Glucose 99 Calcium 9.8 Vitamin B12 395 Folate 5.1 Microbiology Microbiology Results: Microbiology 10/02/24 Unknown Urine Culture - Final Urine clean catch - Clean Catch Midstream No growth. Assessment and Plan (1) Alcohol withdrawal: Status: Acute Plan 29yo M with AUD + mood disorder presenting with severe N/V and admitted for alcohol withdrawal, CIWA 13 EtOH withdrawal - continue phenobarbital taper, folate + thiamine, Addiction Med consult mood disorder - CARE Team consult EtOH esophagitis/gastritis - IV H2RA tobacco abuse - NRT VTE ppx - enoxaparin dispo - eventual home In my clinical judgment, the patient requires continued inpatient hospitalization for the following reasons: inpt EtOH withdrawal management Total time managing care of this patient today: 35 minutes. Quality Stroke Does the patient have a stroke diagnosis?: No VTE Prior VTE?: No VTE Risk Level:: Medical - moderate - high VTE Device Contraindication: Treatment Not Indicated VTE Drug Contraindication: N/A - Med Ordered
--- NOTE | 2024-10-03 14:08 | P.PNADD_ITS ---
Subjective Subjective Date of Service: 10/03/24 Reason For Visit: etoh withdrawals Interim History: Patient seen in follow up labs reviewed Seen by paper cutter earlier today and expressed interest in trialling Naltrexone for AUD Full substance use history obtained by RN and reviewed with patient Discussed Naltrexone, dosing, goals of treatment and side effects Answered questions regarding length of time with treatment Discussed co-occurring depressive and anxiety sx that patient reports have been on going. He identifies these as contributing to his drinking He inquired about starting an antidepressant Reporting poor sleep, appetite varies, anxiety and sadness present Reports previous Fluoxetine trial --not helpful--increased depression Denies any other medication trials Review of Systems Constitutional: Reports fever(s) Mental Status Exam Mental Status Exam Patient Appearance: Well Grooomed and Appropriate Level of Consciousness: Awake, Appropriate and Alert Patient Behavior: Appropriate, Talkative and Cooperative Mood Description: Calm Thought Process: Intact Thought Content: positive for Intact Diagnostics Vital Signs (24Hr): Vital Signs - 24 hr 10/02/24 16:01 10/02/24 17:49 10/02/24 19:37 Temperature 98.2 F 99 F 98.6 F Pulse Rate 103 H 101 H 88 Respiratory Rate 16 19 16 Blood Pressure 116/75 131/81 137/84 Pulse Oximetry 97 97 97 Oxygen Delivery Method Room Air Room Air Room Air 10/02/24 23:42 10/03/24 03:53 10/03/24 07:38 Temperature 99 F Pulse Rate 93 83 75 Respiratory Rate 18 19 18 Blood Pressure 119/82 132/72 125/91 H Pulse Oximetry 96 97 98 Oxygen Delivery Method Room Air Room Air Room Air 10/03/24 11:04 Temperature 97.7 F Pulse Rate 75 Respiratory Rate 20 Blood Pressure 123/89 Pulse Oximetry 97 Oxygen Delivery Method Room Air BMI result Body Mass Index 21.7 Labs 10/03/24 06:30 10/03/24 06:30 Labs: Laboratory Results - last 48 hr 10/02/24 10/02/24 10/02/24 07:47 08:09 10:15 WBC 19.0 H RBC 5.67 Hgb 17.9 Hct 48.2 MCV 85.0 MCH 31.6 MCHC 37.1 H RDW 13.0 Plt Count 296 MPV 8.8 L Immature Gran % (Auto) 0.4 Neut % (Auto) 81.1 H Lymph % (Auto) 12.6 L [place] % (Auto) 5.5 Eos % (Auto) 0.1 Baso % (Auto) 0.3 Lymph # (Auto) 2.4 [place] # (Auto) 1.0 Eos # (Auto) 0.0 Baso # (Auto) 0.1 Abs Immat Gran (auto) 0.08 H Absolute Neuts (auto) 15.4 H Absolute Nucleated RBC 0.000 Nucleated RBC % (auto) 0.0 Sodium 142 Potassium 3.1 L Chloride 100 Carbon Dioxide 22 Anion Gap 23 H BUN 10 Creatinine 0.77 Estim Creat Clear Calc 145.3 Estimated GFR > 60 Random Glucose 115 Calcium 9.8 Magnesium 1.9 Total Bilirubin 1.2 H Direct Bilirubin 0.4 AST 104 H ALT 70 H Alkaline Phosphatase 69 Total Protein 7.9 Albumin 4.9 Lipase 41 Vitamin B12 Folate Urine Color Dark Yellow Urine Appearance Hazy Urine pH 8.0 Ur Specific [place] >= 1.030 H Urine Protein 300 (3+) H Urine Glucose (UA) Negative Urine Ketones 40 Urine Blood Negative Urine Nitrite Positive H Ur Leukocyte Esterase Small (1+) H Urine RBC 0-2 Urine WBC 0-5 Ur Squamous Epith Cells 0-2 Urine Bacteria Trace Hyaline Casts 3-5 Urine Opiates Screen Not Detected Ur Buprenorphine Scrn Not Detected Ur Oxycodone Screen Not Detected Urine Methadone Screen Not Detected Urine Fentanyl Screen Not Detected Ur Barbiturates Screen Not Detected Ur Phencyclidine Scrn Not Detected Ur Amphetamines Screen Not Detected U Benzodiazepines Scrn Not Detected Urine Cocaine Screen Not Detected U Marijuana (THC) Screen POSITIVE H Ethyl Alcohol 167 10/03/24 06:30 WBC 9.3 RBC 4.81 Hgb 15.2 Hct 42.6 MCV 88.6 MCH 31.6 MCHC 35.7 RDW 13.0 Plt Count 208 D MPV 9.0 L Immature Gran % (Auto) 0.2 Neut % (Auto) 62.0 Lymph % (Auto) 25.7 [place] % (Auto) 10.3 Eos % (Auto) 1.2 Baso % (Auto) 0.6 Lymph # (Auto) 2.4 [place] # (Auto) 1.0 Eos # (Auto) 0.1 Baso # (Auto) 0.1 Abs Immat Gran (auto) 0.02 Absolute Neuts (auto) 5.8 Absolute Nucleated RBC 0.000 Nucleated RBC % (auto) 0.0 Sodium 139 Potassium 3.9 D Chloride 101 Carbon Dioxide 27 Anion Gap 15 BUN 11 Creatinine 0.70 Estim Creat Clear Calc 159.6 Estimated GFR > 60 Random Glucose 99 Calcium 9.8 Magnesium Total Bilirubin Direct Bilirubin AST ALT Alkaline Phosphatase Total Protein Albumin Lipase Vitamin B12 395 Folate 5.1 Urine Color Urine Appearance Urine pH Ur Specific [place] Urine Protein Urine Glucose (UA) Urine Ketones Urine Blood Urine Nitrite Ur Leukocyte Esterase Urine RBC Urine WBC Ur Squamous Epith Cells Urine Bacteria Hyaline Casts Urine Opiates Screen Ur Buprenorphine Scrn Ur Oxycodone Screen Urine Methadone Screen Urine Fentanyl Screen Ur Barbiturates Screen Ur Phencyclidine Scrn Ur Amphetamines Screen U Benzodiazepines Scrn Urine Cocaine Screen U Marijuana (THC) Screen Ethyl Alcohol Medications Medications Current Medications Acetaminophen (Acetaminophen 325 Mg Tablet) 650 mg PO Q6H PRN PRN Reason: Pain, Mild (Pain Scale 1-3), fever or headache Al Hydroxide/Mg Hydroxide (Magnesium Hydrox/Alum Hydrox 30 Ml Oral.Susp) 30 ml PO Q4H PRN PRN Reason: Heartburn Calcium Carbonate (Calcium Carbonate 750 Mg Tab.Chew) 750 mg PO Q4H PRN PRN Reason: Heartburn Last Admin: 10/02/24 20:05 Dose: 750 mg Enoxaparin Sodium (Enoxaparin Sodium 40 Mg/0.4 Ml Syringe) 40 mg SUBCUT Q24H [facility] Last Admin: 10/03/24 10:58 Dose: 40 mg Famotidine (Famotidine/Pf 20 Mg/2 Ml Vial) 20 mg IVPUSH BID [facility] Last Admin: 10/03/24 09:25 Dose: 20 mg Folic Acid (Folic Acid 1 Mg Tablet) 1 mg PO DAILY [facility] Stop: 10/05/24 11:29 Last Admin: 10/03/24 09:25 Dose: 1 mg Magnesium Hydroxide (Milk Of Magnesia 30 Ml Oral.Susp) 30 ml PO DAILY PRN PRN Reason: Constipation Melatonin (Melatonin 3 Mg Tablet) 6 mg PO BEDTIME PRN PRN Reason: Insomnia Multivitamins/Vitamin C (Multivitamin Tablet) 1 tab PO DAILY [facility] Stop: 10/05/24 11:29 Last Admin: 10/03/24 09:25 Dose: 1 tab Nicotine (Nicotine 21 Mg Patch.Td24) 21 mg TRANSDERMA DAILY [facility] Last Admin: 10/03/24 10:58 Dose: 21 mg Nicotine Polacrilex (Nicotine Polacrilex 2 Mg Gum) 2 mg BUCCAL Q1H PRN PRN Reason: Nicotine Cravings Last Admin: 10/03/24 09:25 Dose: 2 mg Ondansetron HCl (Ondansetron Hcl 4 Mg/2 Ml Vial) 4 mg IVPUSH Q8H PRN PRN Reason: Nausea and Vomiting Last Admin: 10/02/24 20:33 Dose: 4 mg Pharmacy Consult (Consult Rx Etoh Phenob Im/Po) 1 each MISCELLANE ONCE PRN; Protocol PRN Reason: Consult order Phenobarbital (Phenobarbital 30 Mg Tablet) 60 mg PO BID [facility]; Protocol Stop: 10/04/24 09:01 Last Admin: 10/03/24 09:25 Dose: 60 mg Phenobarbital (Phenobarbital 30 Mg Tablet) 30 mg PO BID [facility]; Protocol Stop: 10/07/24 09:01 Phenobarbital (Phenobarbital 30 Mg Tablet) 30 mg PO DAILY [facility]; Protocol Stop: 10/09/24 09:01 Sodium Chloride (0.9 % Sodium Chloride Flush 3 Ml Syringe) 3 ml IVFLUSH QSHIFT [facility] Last Admin: 10/03/24 09:25 Dose: 3 ml Thiamine HCl (Thiamine Hcl 100 Mg Tablet) 100 mg PO DAILY [facility] Stop: 10/05/24 11:29 Last Admin: 10/03/24 09:25 Dose: 100 mg Trazodone HCl (Trazodone Hcl 50 Mg Tablet) 50 mg PO BEDTIME PRN PRN Reason: Insomnia Last Admin: 10/02/24 20:27 Dose: 50 mg Allergies Allergies Allergy/AdvReac Type Severity Reaction Status Date / Time No Known Allergies Allergy Verified 10/02/24 07:29 Assessment & Plan Assessment & Plan (1) Alcohol use disorder, severe, dependence: Status: Acute Code(s): F10.20 - Alcohol dependence, uncomplicated Assessment and Plan: * naltrexone 25mg QD x 3 days then increase to 50mg daily * mirtazipine 7.5 bedtime * will follow up with [facility] at discharge * therapy referrals in process * plans to attend AA at discharge Total time managing care of this patient today _35__ minutes.
--- NOTE | 2024-10-03 15:14 | MHC.RECOVRN ---
Pt has [facility] appt 10/16/24 at 9AM. CM aware.
--- NOTE | 2024-10-03 15:14 | MHC.CARE ---
[facility] referral complete.
--- NOTE | 2024-10-03 15:20 | MHC.CM.PN ---
CM received message from recovery nurse, pt has appt janes/Nat Yang at [facility] on 10/16 at 0900am, appt added to printable DCP.
[2024-10-03 15:39] VITALS: BP 133/92; PULSE 102; RESP 20; TEMP 37; O2SAT 98
[2024-10-03 18:58] VITALS: BP 136/92; PULSE 99; RESP 18; TEMP 36.6; O2SAT 98
[2024-10-03] MEDS: Naltrexone HCl 50 MG TABLET 25 MG PO (20:01)
[2024-10-03] MEDS: Melatonin 3 MG TABLET 6 MG PO (20:03)
[2024-10-03] MEDS: Mirtazapine 7.5 MG TABLET PO (20:15)
[2024-10-03 23:51] VITALS: BP 138/93; PULSE 86; RESP 19; TEMP 36.3; O2SAT 99
[2024-10-04] MEDS: 0.9 % Sodium Chloride Flush 3 ML SYRINGE IVFLUSH ×2 (00:08→09:30)
[2024-10-04 03:25] VITALS: BP 138/88; PULSE 93; RESP 19; TEMP 36.2; O2SAT 98
[2024-10-04 06:47] LABS: Basophils Absolute Auto 0.1 X10*3/uL (0.0-0.2); Basophils Percent Auto 0.7 % (0-2); Eosinophils Absolute Auto 0.1 X10*3/uL (0.0-0.4); Eosinophils Percent Auto 1.5 % (0-4); Hemoglobin 15.3 g/dl (14.0-18.0); Imm Gran Abs Auto 0.04 X10*3/uL (0.00-0.03); Imm Gran Pct Auto 0.5 % (0.0-0.4); Lymphocytes Absolute Auto 2.1 X10*3/uL (1.2-4.9); Lymphocytes Percent Auto 25.7 % (20-40); MANUAL DIFF FLAG NO; Mean Corpuscular HGB Conc 34.8 g/dl (31.0-36.0); Mean Corpuscular Hemoglobin 31.5 pg (27.0-33.0); Mean Corpuscular Volume 90.7 fL (80.0-98.0); Mean Platelet Volume 9.9 fL (9.4-12.4); Monocytes Absolute Auto 0.9 X10*3/uL (0.1-1.2); Monocytes Percent Auto 10.9 % (2-11); Neutrophils Percent Auto 60.7 % (45-73); Platelet Count 211 X10*3/uL (160-400); Red Blood Count 4.85 X10*6/uL (4.60-5.80); Red Cell Distribution Width 12.7 % (11.0-16.0); White Blood Count 8.2 X10*3/uL (4.8-10.8)
[2024-10-04 06:57] LABS: Alanine Aminotransferase 104 U/L (0-40); Albumin Level 4.5 g/dL (3.5-5.0); Alkaline Phosphatase 65 U/L (39-117); Anion Gap 15 (12-20); Aspartate Amino Transferase 138 U/L (5-37); Bilirubin Total 1.2 mg/dL (0.0-1.0); Blood Urea Nitrogen 11 mg/dL (9-16); Calcium 9.3 mg/dL (8.4-10.2); Carbon Dioxide 23 mmol/L (22-29); Chloride 103 mmol/L (96-108); Creatinine Clr Calc Pharmacy 143.2; Estimated Glomerular Filt Rate > 60; Glucose Random 92 mg/dL (60-115); Potassium 3.4 mmol/L (3.3-5.1); Sodium 138 mmol/L (135-145); Total Protein 7.4 g/dL (6.5-8.0)
[2024-10-04 07:49] VITALS: BP 133/95; PULSE 101; TEMP 36.7; O2SAT 98
[2024-10-04] MEDS: Folic Acid 1 MG TABLET PO (09:25)
[2024-10-04] MEDS: Multivitamin TABLET 1 TAB PO (09:25)
[2024-10-04] MEDS: Thiamine HCL 100 MG TABLET PO (09:30)
--- NOTE | 2024-10-04 10:23 | MHC.RECOVRN ---
Met with pt to follow up and provide support. Pt initiated mirtazapine and naltrexone last night. Pt reports sleeping well, looking forward to going home. Provided pt with [facility] appointment information. Denies questions or concerns for t/w.
--- NOTE | 2024-10-04 10:29 | MHC.CM.PN ---
PT MEDICALLY CLEARED FOR DC HOME SELF CARE, PT'S S.O. FOR TRANSPORT
--- NOTE | 2024-10-04 10:40 | P.DS_ITS ---
DS: Providers Provider Date of Service: 10/04/24 Date of admission: 10/02/24 11:15 Date of discharge: 10/04/24 Primary care physician: None Physician Consults: 10/02/24 09:19 Addiction Medicine Stat Consulting Provider: Addiction Covering Reason for consultation: alcohol abuse - wants detox 10/02/24 11:26 Addiction Medicine Routine Consulting Provider: Addiction Covering Reason for consultation: etoh withdrawal Has provider been notified: No 10/03/24 12:06 Consult to Care Team Routine Comment: Reason for consultation: depression and anxiety DS: Diagnosis Discharge Diagnosis (1) Alcohol use disorder, severe, dependence: Status: Acute (2) Alcohol withdrawal: Status: Acute (3) Depression: Status: Acute DS: Summary Hospital Course Hospital Course: From the history and physical by the admitting hospitalist, SASKIA Kaur, 10/02/24: Patient is a 29-year-old male with a past medical history significant for anxiety, depression, insomnia and alcohol abuse (history of DTs) who presented to the ED, and alcohol withdrawal with severe nausea and vomiting. His last dr ink was at 02:00 today. He reports a heavy history of alcohol use since 13 years old, intermittent sobriety, started drinking again 1-2 ago, usually 15 nips of vodka a day. He has been vomiting recently a few times a day however were significantly last night bringing him to the ED. he denies any hematemesis and reported only liquids or bile. Last night he was unable to tolerate any liquids without vomiting. He reports severe pain with swallowing since the severe vomiting episodes. He does have a history of delirium tremens back in 2021 with withdrawal. He complains of a headache, mild nausea now (more severe earlier), chest tightness and severe anxiety. He denies any vomiting here, agitation, visual or auditory hallucinations. 29yo M with AUD + mood disorder presenting with severe N/V and admitted for alcohol withdrawal that improved rapidly with phenobarbital taper. He met with the Addiction Medicine team and was started on naltrexone for AUD and mirtazapine for depression. He will follow up with [facility] for ongoing care. Time Attestation Discharge Coordination Time (in mins): 35 Specific discharge activities: no alcohol Quality: Safe Use of Opioids Does Pt have an Active Cancer Diagnosis on the Problem List?: No Quality: Stroke Does the patient have a stroke diagnosis?: No Physical Exam Vital Signs: Vital Signs: Last Vital Signs Temp 98.1 F 10/04/24 07:49 Pulse 101 H 10/04/24 07:49 Resp 19 10/04/24 03:25 BP 133/95 H 10/04/24 07:49 Pulse Ox 98 10/04/24 07:49 O2 Del Method Room Air 10/04/24 07:49 BMI result Body Mass Index 21.7 Gen: in no acute distress HEENT: sclera anicteric, moist mucus membranes Neck: supple Lungs: clear to auscultation bilaterally Heart: regular rate and rhythm, no murmurs Abd: soft, non-tender, non-distended Ext: no edema Skin: warm/well-perfused Neuro: alert and oriented x3, no focal findings Psych: appropriate affect DS: Data Data Completed and Pending Completed studies during hospitalization [Text1]: Laboratory Results WBC 8.2 X10*3/uL (4.8-10.8) 10/04/24 06:05 RBC 4.85 X10*6/uL (4.60-5.80) 10/04/24 06:05 Hgb 15.3 g/dl (14.0-18.0) 10/04/24 06:05 Hct 44.0 % (42.0-52.0) 10/04/24 06:05 MCV 90.7 fL (80.0-98.0) 10/04/24 06:05 MCH 31.5 pg (27.0-33.0) 10/04/24 06:05 MCHC 34.8 g/dl (31.0-36.0) 10/04/24 06:05 RDW 12.7 % (11.0-16.0) 10/04/24 06:05 Plt Count 211 X10*3/uL (160-400) 10/04/24 06:05 MPV 9.9 fL (9.4-12.4) 10/04/24 06:05 Immature Gran % (Auto) 0.5 % (0.0-0.4) H 10/04/24 06:05 Neut % (Auto) 60.7 % (45-73) 10/04/24 06:05 Lymph % (Auto) 25.7 % (20-40) 10/04/24 06:05 [place] % (Auto) 10.9 % (2-11) 10/04/24 06:05 Eos % (Auto) 1.5 % (0-4) 10/04/24 06:05 Baso % (Auto) 0.7 % (0-2) 10/04/24 06:05 Lymph # (Auto) 2.1 X10*3/uL (1.2-4.9) 10/04/24 06:05 [place] # (Auto) 0.9 X10*3/uL (0.1-1.2) 10/04/24 06:05 Eos # (Auto) 0.1 X10*3/uL (0.0-0.4) 10/04/24 06:05 Baso # (Auto) 0.1 X10*3/uL (0.0-0.2) 10/04/24 06:05 Abs Immat Gran (auto) 0.04 X10*3/uL (0.00-0.03) H 10/04/24 06:05 Absolute Neuts (auto) 5.0 x10*3/uL (2.0-8.3) 10/04/24 06:05 Absolute Nucleated RBC 0.000 X10*3/uL (0.0-0.012) 10/04/24 06:05 Nucleated RBC % (auto) 0.0 /100WBC (0.0-0.2) 10/04/24 06:05 Sodium 138 mmol/L (135-145) 10/04/24 06:05 Potassium 3.4 mmol/L (3.3-5.1) 10/04/24 06:05 Chloride 103 mmol/L (96-108) 10/04/24 06:05 Carbon Dioxide 23 mmol/L (22-29) 10/04/24 06:05 Anion Gap 15 (12-20) 10/04/24 06:05 BUN 11 mg/dL (9-16) 10/04/24 06:05 Creatinine 0.78 mg/dL (0.5-1.4) 10/04/24 06:05 Estim Creat Clear Calc 143.2 10/04/24 06:05 Estimated GFR > 60 10/04/24 06:05 Random Glucose 92 mg/dL (60-115) 10/04/24 06:05 Calcium 9.3 mg/dL (8.4-10.2) 10/04/24 06:05 Magnesium 2.0 mg/dL (1.6-2.6) 10/04/24 06:05 Total Bilirubin 1.2 mg/dL (0.0-1.0) H 10/04/24 06:05 Direct Bilirubin 0.4 mg/dL (0.0-0.5) 10/02/24 08:09 AST 138 U/L (5-37) H 10/04/24 06:05 ALT 104 U/L (0-40) H 10/04/24 06:05 Alkaline Phosphatase 65 U/L (39-117) 10/04/24 06:05 Total Protein 7.4 g/dL (6.5-8.0) 10/04/24 06:05 Albumin 4.5 g/dL (3.5-5.0) 10/04/24 06:05 Lipase 41 U/L (8-78) 10/02/24 08:09 Vitamin B12 395 pg/mL (200-900) 10/03/24 06:30 Folate 5.1 ng/mL (> or = 4.0) 10/03/24 06:30 Urine Color Dark Yellow 10/02/24 10:15 Urine Appearance Hazy 10/02/24 10:15 Urine pH 8.0 (5.0-9.0) 10/02/24 10:15 Ur Specific [place] >= 1.030 (1.005-1.025) H 10/02/24 10:15 Urine Protein 300 (3+) mg/dL (Neg-Trace) H 10/02/24 10:15 Urine Glucose (UA) Negative mg/dL (Negative) 10/02/24 10:15 Urine Ketones 40 mg/dL (Negative) 10/02/24 10:15 Urine Blood Negative (Negative) 10/02/24 10:15 Urine Nitrite Positive (Negative) H 10/02/24 10:15 Ur Leukocyte Esterase Small (1+) (Negative) H 10/02/24 10:15 Urine RBC 0-2 /HPF (0-2) 10/02/24 10:15 Urine WBC 0-5 /HPF (0-5) 10/02/24 10:15 Ur Squamous Epith Cells 0-2 /HPF (0-2) 10/02/24 10:15 Urine Bacteria Trace (None Seen) 10/02/24 10:15 Hyaline Casts 3-5 /LPF (0-2) 10/02/24 10:15 Urine Opiates Screen Not Detected (Not Detect) 10/02/24 10:15 Ur Buprenorphine Scrn Not Detected ng/mL (Not Detect) 10/02/24 10:15 Ur Oxycodone Screen Not Detected ng/mL (Not Detect) 10/02/24 10:15 Urine Methadone Screen Not Detected ng/mL (Not Detect) 10/02/24 10:15 Urine Fentanyl Screen Not Detected (Not Detect) 10/02/24 10:15 Ur Barbiturates Screen Not Detected (Not Detect) 10/02/24 10:15 Ur Phencyclidine Scrn Not Detected (Not Detect) 10/02/24 10:15 Ur Amphetamines Screen Not Detected (Not Detect) 10/02/24 10:15 U Benzodiazepines Scrn Not Detected (Not Detect) 10/02/24 10:15 Urine Cocaine Screen Not Detected (Not Detect) 10/02/24 10:15 U Marijuana (THC) Screen POSITIVE (Not Detect) H 10/02/24 10:15 Ethyl Alcohol 167 mg/dL 10/02/24 08:09 Discharge Plan Discharge Anticipated Discharge Date/Time: 10/04/24 10:37 Patient Disposition: Home, Self-Care Discharge Diagnosis: alcohol withdrawal syndrome depression Referrals: Physician,None [Primary Care Provider] - 1 Week Nat Yang CNP [Nurse Practitioner] - 10/16/24 9:00 am Discharge Medications: New nicotine (polacrilex) 2 mg Gum 2 mg buccal Q1H PRN (Reason: Nicotine Cravings) Qty: 100 0RF naltrexone 50 mg Tablet 25 mg PO BEDTIME Qty: 30 0RF nicotine 21 mg/24 hr Patch 24 Hour 21 mg transdermal DAILY Qty: 30 0RF folic acid 1 mg Tablet 1 mg PO DAILY Qty: 30 0RF mirtazapine 7.5 mg Tablet 7.5 mg PO BEDTIME Qty: 30 0RF thiamine mononitrate (vit B1) 100 mg Tablet 100 mg PO DAILY Qty: 30 0RF Continued ibuprofen 200 mg Tablet 200 mg PO DAILY PRN (Reason: Pain) melatonin 5 mg Tablet 5 mg PO BEDTIME PRN (Reason: Sleep) Discharge Orders: Discharge Order (Routine); Ordered 10/04/24 Ordered By: Rios Machuca Diet: Advance to usual diet Activity on Discharge: As tolerated Stand Alone Forms: Patient Portal Discharge page Print Language: Moroccan Care Plan Goals: sobriety Health Concerns: alcohol withdrawal syndrome depression Plan of Treatment: take naltrexone 25 mg daily take mirtazapine 7.5 mg every night take vitamins quit smoking; use nicotine replacement to help follow up with [facility], [address] [place] [address] [phone], establish primary care EULALIA Assessment: See Discharge Summary.
== END 2024-10-04 11:07 | disposition home or self-care (01) | DRG 775 ==
LOC: HO.ED 08:45 → HO.EDOVER 11:21 → HO.IMC 16:16
PROVIDERS: Physician Assistant Medical; Admitting Provider Physician Assistant; Emergency Provider Emergency Medicine; Visit Provider Family Medicine
DX: F10.239 Alcohol dependence with withdrawal, unspecified (principal); E87.6 Hypokalemia; F32.A Depression, unspecified; F17.210 Nicotine dependence, cigarettes, uncomplicated; Z71.6 Tobacco abuse counseling; K29.20 Alcoholic gastritis without bleeding; K20.90 Esophagitis, unspecified without bleeding; Z71.41 Alcohol abuse counseling and surveillance of alcoholic; Y90.6 Blood alcohol level of 120-199 mg/100 ml; Z79.899 Other long term (current) drug therapy
CPT/HCPCS: 36415; 80048; 80053; 80076; 80307; 81001; 82607; 82746; 83690; 83735; 85025; 87086; 93005; 99285; J1650; J2060; J2405; J2560; S9485

== ENCOUNTER → 2024-10-02 07:32 | Outpatient (BNV) | payer MEDICAID, SELFPAY | PROVIDERS: Emergency Provider Emergency Medicine; Visit Provider Internal Medicine Cardiovascular Disease | DX: R07.9 Chest pain, unspecified (principal) | CPT/HCPCS: 93010 ==

== ENCOUNTER → 2024-10-02 11:15 | Outpatient (BNV) | payer OTHER, SELFPAY | PROVIDERS: Admitting Provider Physician Assistant; Emergency Provider Emergency Medicine; Visit Provider Nurse Practitioner Psychiatric/Mental Health | DX: F10.20 Alcohol dependence, uncomplicated (principal) | CPT/HCPCS: 99232 ==

== ENCOUNTER → 2024-10-02 11:15 | Outpatient (BNV) | payer MEDICAID, SELFPAY | PROVIDERS: Admitting Provider Physician Assistant; Emergency Provider Emergency Medicine; Visit Provider Physician Assistant | DX: F10.939 Alcohol use, unspecified with withdrawal, unspecified (principal); K29.70 Gastritis, unspecified, without bleeding; K20.90 Esophagitis, unspecified without bleeding | CPT/HCPCS: 99223; 99232; 99239; 99499 ==

== ENCOUNTER 2024-10-16 08:59 | Outpatient (AMB) | payer MEDICAID, SELFPAY ==
--- NOTE | 2024-10-16 09:18 | A.OFFVISCC_ITS ---
Vital Signs 10/16/24 14:19 BP 120/70 Blood Pressure Location Rt brachial Position Sitting Pulse 72 Pulse Source Pulse Oximeter Pulse Oximetry (%) 99 Oxygen Delivery Method Room Air Intake Visit Reasons: 30 min intake Allergies No Known Allergies Allergy (Verified 10/02/24 07:29) HPI HPI 30 min intake: Details: Patient presents for intake and continuation of treatment for AUD Seen by t/w and ACS during recent medical admission for alcohol withdrawal History obtained during admission and reviewed today Started on mirtazipine and naltrexone while inpatient Reports he has been tolerating medication and sleep has improved day meetings Patient somewhat guarded when discussing treatment plan Identifies as someone who has done a lot of bad things and feels he has dif ficulty forming relationships i am too honest sometimes He does have a fiancee who he feels is very supportive Reporting that while sleep has improved, he is noting an increase in anxiety He would like to address this Recovery: -has started attending AA meetings on Sundays and enjoys them Review of Systems Const Reports as per HPI and Reports no additional complaints Physical Exam Const General: cooperative, healthy appearing and well groomed Nutritional Appearance: average body habitus Orientation/consciousness: patient oriented x3 Limitations: no limitations Neuro General: patient oriented x3 Psych Appearance: well kempt Speech and movement: Clear speech present Affect: normal affect Attitude: cooperative and Guarded attititude/behavior present Thought process: Normal thought process present Thought content: Normal thought content present Insight: Good insight present (Psych) Judgement: Good judgement present (Psych) Assessment & Plan Assessment & Plan (1) Alcohol use disorder, severe, dependence: Code(s): F10.20 - Alcohol dependence, uncomplicated Category: Medical Plan: * continue naltrexone * trial propranolol 10mg BID for anxiety. * follow up 2 weeks * relapse prevention discussion Medications: New propranolol 10 mg PO BID 20 tabs 0RF PFSH Medical History Insomnia Depression Anxiety ETOH abuse Social History Household Members: Significant Other Housing: Apartment Alcohol intake: current Comment: moderate fall risk, refusing alarms Patient Tobacco Use Status: Current everyday Tobacco user Tobacco use type: Cigarette Cigarette Packs Per Day: 10 Cigarettes Per Day: 200.0 Substance Use Type: Marijuana service: No
[2024-10-16 14:19] VITALS: BP 120/70; PULSE 72; O2SAT 99
== END 2024-10-16 09:45 | disposition home or self-care (01) ==
PROVIDERS: Visit Provider Nurse Practitioner Psychiatric/Mental Health
DX: F10.20 Alcohol dependence, uncomplicated (principal)
CPT/HCPCS: 99214

== ENCOUNTER → 2024-10-16 08:59 | Outpatient (BNVA) | payer MEDICAID, SELFPAY | PROVIDERS: Visit Provider Nurse Practitioner Psychiatric/Mental Health | DX: F10.20 Alcohol dependence, uncomplicated (principal); Z79.899 Other long term (current) drug therapy | CPT/HCPCS: 99212 ==

== ENCOUNTER 2024-11-13 08:56 | Outpatient (AMB) | payer MEDICAID, SELFPAY ==
--- NOTE | 2024-11-13 09:21 | A.OFFVISCC_ITS ---
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, discussed concerns Review of Systems Const Reports as per HPI and Reports no additional complaints Physical Exam Const General: cooperative, healthy appearing and well groomed Nutritional Appearance: average body habitus Orientation/consciousness: patient oriented x3 Limitations: no limitations Neuro General: patient oriented x3 Psych Appearance: well kempt Speech and movement: Clear speech present Affect: normal affect Attitude: cooperative and Guarded attititude/behavior present Thought process: Normal thought process present Thought content: Normal thought content present Insight: Good insight present (Psych) Judgement: Good judgement present (Psych) Assessment & Plan Assessment & Plan (1) Alcohol use disorder, severe, dependence: Code(s): F10.20 - Alcohol dependence, uncomplicated Category: Medical Plan: * continue naltrexone * increase mirtazipine to 15mg QD * trial propranolol 10mg BID for anxiety. * follow up end of November * relapse prevention discussion Medications: New mirtazapine 15 mg PO BEDTIME 90 tabs 0RF Changed From naltrexone 25 mg (1/2 x 50 mg) PO BEDTIME 30 tabs 0RF To naltrexone 50 mg PO BEDTIME 90 tabs 0RF Discontinued mirtazapine Discontinued Reason: Doctor's Order 7.5 mg PO BEDTIME 30 tabs 0RF PFSH Medical History Insomnia Depression Anxiety ETOH abuse Social History Household Members: Significant Other Housing: Apartment Alcohol intake: current Comment: moderate fall risk, refusing alarms Patient Tobacco Use Status: Current everyday Tobacco user Tobacco use type: Cigarette Cigarette Packs Per Day: 10 Cigarettes Per Day: 200.0 Substance Use Type: Marijuana service: No
== END 2024-11-13 10:26 | disposition home or self-care (01) ==
PROVIDERS: Visit Provider Nurse Practitioner Psychiatric/Mental Health
DX: F10.20 Alcohol dependence, uncomplicated (principal)
CPT/HCPCS: 99214

== ENCOUNTER → 2024-11-13 08:56 | Outpatient (BNVA) | payer MEDICAID, SELFPAY | PROVIDERS: Visit Provider Nurse Practitioner Psychiatric/Mental Health | DX: F10.20 Alcohol dependence, uncomplicated (principal) | CPT/HCPCS: 99212 ==